=== PATIENT | male | born 1960 | race Caucasian/White ===

== ENCOUNTER → 2017-04-01 | Outpatient (CLI) | payer OTHER | END | disposition home or self-care (01) | LOC: RAD 08:57 | PROVIDERS: ATTEND Family Medicine | DX: M51.34 Other intervertebral disc degeneration, thoracic region (principal); M46.04 Spinal enthesopathy, thoracic region | CPT/HCPCS: 72072 ==

== ENCOUNTER → 2020-04-17 | Outpatient (CLI) | payer OTHER | END | disposition home or self-care (01) | LOC: CVU 06:41 | PROVIDERS: ATTEND Internal Medicine Cardiovascular Disease | DX: I34.0 Nonrheumatic mitral (valve) insufficiency (principal); I10 Essential (primary) hypertension | CPT/HCPCS: 93306; 93356 ==

== ENCOUNTER → 2020-04-24 | Outpatient (CLI) | payer OTHER | END | disposition home or self-care (01) | LOC: CFH 14:33 | PROVIDERS: ATTEND Internal Medicine Cardiovascular Disease | DX: Z13.6 Encounter for screening for cardiovascular disorders (principal); E78.2 Mixed hyperlipidemia | CPT/HCPCS: 75571 ==